=== PATIENT | male | born 1965 | race Caucasian/White ===

== ENCOUNTER 2022-11-19 08:18 | Day surgery (SDC) | payer BC ==
[2022-11-13 16:48] LABS: CLARITY,URINE CLEAR (Clear); COLOR,URINE YELLOW (Yellow); GLUCOSE, URINE NEGATIVE (Neg); KETONES,URINE NEGATIVE (Neg); LEUKOCYTE ESTERASE ,URINE NEGATIVE (Neg); NITRITES, URINE NEGATIVE (Neg); OCCULT BLOOD,URINE NEGATIVE (Neg); PROTEIN,URINE NEGATIVE (Neg); UROBILINOGEN,URINE 0.2 E.U/dL (0.2-1.0)
[2022-11-13 16:49] LABS: BASOPHILS # (AUTO) 0.1 X10'3 (0-0.2); EOSINOPHILS # (AUTO) 0.3 X10'3 (0-0.9); LYMPHOCYTES # (AUTO) 1.4 X10'3 (1.1-4.8); LYMPHOCYTES % (AUTO) 17.4 % (21-51); MEAN CORPUSCULAR HEMOGLOBIN 27.4 PG (27.0-31.0); MEAN CORPUSCULAR HGB CONC 33.3 g/dL (33.0-36.5); MEAN CORPUSCULAR VOLUME 82.2 FL (78-98); MONOCYTES # (AUTO) 0.4 X10'3 (0-0.9); MONOCYTES % (AUTO) 5.5 % (2-12); NEUTROPHILS # (AUTO) 5.8 X10'3 (1.8-7.7); NEUTROPHILS % (AUTO) 72.1 % (42-75); PRE OP HEMATOCRIT 44.2 % (42.0-52.0); PRE OP HEMOGLOBIN 14.7 g/dL (14.0-17.9); PRE OP PLATELET COUNT 240 X10'3 (140-440); RED BLOOD COUNT 5.38 X10'6 (4.70-6.10); RED CELL DISTRIBUTION WIDTH 14.6 % (11.5-14.5)
[2022-11-13 16:53] LABS: UA COLLECTION TYPE CLN CATCH MIDSTREAM
[2022-11-13 17:00] LABS: ALBUMIN 3.7 G/DL (3.4-5.0); ALKALINE PHOSPHATASE 113 IU/L (46-116); BLOOD UREA NITROGEN 14 MG/DL (7-18); BUN/CREATININE RATIO 16.7 (10.0-20.0); CHLORIDE 106 MMOL/L (99-107); CREATININE 0.84 MG/DL (0.60-1.10); PRE OP ALT 19 U/L (30-65); PRE OP ANION GAP 6 (8-16); PRE OP AST 16 U/L (10-37); PRE OP BILIRUB, TOTAL 0.5 MG/DL (0.0-1.0); PRE OP GLUCOSE 121 MG/DL (70-104); PRE OP SODIUM 136 MMOL/L (135-145); TOTAL CARBON DIOXIDE 23.9 MMOL/L (24-32); TOTAL PROTEIN 7.3 G/DL (6.4-8.2); eGFR > 90 ML/MIN
[~2022-11-19] VITALS: Ht 180.3 cm; Wt 135.5 kg
[2022-11-19] VITALS (16 sets, daily range): BP systolic 103–178; BP diastolic 65–94
[~2022-11-19 08:18] MED LIST: LOSA100T58 PO; ceFAZolin inj. 3,000 MG in normal saline 100ml IV soln 100 ML IV ONE; famotidine 20mg tablet PO ONE; ringers solution, lacted 1,000 ML IV SCH
[2022-11-19] MEDS ORDERED: BUPIVAcaine/PF 2.5 mg/ml (0.25%) 30ml vial ONE ×2 (10:26→10:39)
[2022-11-19] MEDS ORDERED: BUPIVACAINE liposomal/PF 13.3 MG/ML vial IM ONE (10:39)
[2022-11-19] MEDS ORDERED: fentaNYL/PF 50MCG/1 ML 2ML syringe ONE ×2 (10:46→12:24)
[2022-11-19] MEDS ORDERED: midazolam 1 mg/ML 2ml injection ONE (10:47)
[2022-11-19] MEDS ORDERED: morphine 2 MG/ML inj. syringe IV PRN (12:30)
[2022-11-19] MEDS ORDERED: morphine 4 MG/ML inj SYRINge IV PRN (12:30)
[2022-11-19] MEDS ORDERED: meperidine/PF 25mg/ml syringe IV PRN ×2 (12:30)
[2022-11-19] MEDS ORDERED: ringers solution, lacted 1,000 ML IV SCH (12:30)
[2022-11-19] MEDS ORDERED: ondansetron/PF 4mg/2ml inj IV PRN (12:30)
[2022-11-19] MEDS ORDERED: proCHLORperazine 10 MG/2 ml inj IV PRN (12:30)
[2022-11-19] MEDS ORDERED: ondansetron/PF 4mg/2ml inj ONE (13:54)
[2022-11-19] MEDS ORDERED: albuterol 60 PUFF/8GM Inhaler (90mcg/1 puff) IH ONE (13:54)
[2022-11-19] MEDS ORDERED: neostigmine methylsulfate 1 MG/ML 10ml vial ONE (13:54)
[2022-11-19] MEDS ORDERED: rocuronium 10mg/ml inj IV ONE (13:54)
[2022-11-19] MEDS ORDERED: LIDOcaine 2% (20mg/ml) 5ml vial ONE (13:54)
[2022-11-19] MEDS ORDERED: glycopyrrolate 0.2mg/ml inj ONE (13:54)
[2022-11-19] MEDS ORDERED: dexamethasone sod phosphate 4mg/ml inj. ONE (13:54)
[2022-11-19] MEDS ORDERED: propofol inj 20 ML IV ONE (13:54)
[2022-11-19] MEDS ORDERED: sugammadex 200mg/2ml injection IV ONE (13:57)
--- NOTE | 2022-11-19 13:59 | NUR ---
Received from OR via [facility] TO [facility], accompanied by Anesthesiologist DR JOYCE and report given by Anesthesiolgist. PT PRESENTS WITH PIV 20G LEFT AC, 3 ABD LAP SITES CDI WITH ISLAND DRESSING CDI, SPO2 99% 6L MASK/ LR RUNNING AT 100MLS/HR, VSS. PT REPORTS ABD PAIN 01/29, PT MEDICATED. Addendum: 11/19/22 at 1440 by Kamala Dimas RN, RN Amended: Links added.
[2022-11-19] MEDS: meperidine/PF 25mg/ml syringe IV PRN ×2 (14:12→15:06)
[2022-11-19] MEDS ORDERED: HYDROcodone/acetaminophen 10/325mg tab PO ONE (14:45)
--- NOTE | 2022-11-19 16:09 | NUR ---
I HAVE REVIEWED D/C INSTRUCTIONS WITH PATIENT and they have verbalized understanding patient d/c home with all belongings and family gave transport home. Addendum: 11/19/22 at 1622 by Kamala Dimsa RN, RN Amended: Links added.
== END 2022-11-19 16:09 | disposition home or self-care (01) ==
LOC: PAS 08:18
PROVIDERS: ATTEND Surgery
DX: K43.2 Incisional hernia without obstruction or gangrene (principal); I10 Essential (primary) hypertension; K21.9 Gastro-esophageal reflux disease without esophagitis; F41.9 Anxiety disorder, unspecified; J45.909 Unspecified asthma, uncomplicated; M19.90 Unspecified osteoarthritis, unspecified site; E66.9 Obesity, unspecified; Z68.41 Body mass index [BMI] 40.0-44.9, adult; Z72.89 Other problems related to lifestyle; Z91.09 Other allergy status, other than to drugs and biological substances; Z88.8 Allergy status to other drugs, medicaments and biological substances; Z98.890 Other specified postprocedural states; Z79.899 Other long term (current) drug therapy
CPT/HCPCS: 36415; 49615; 80053; 81003; 82948; 85025; 93005; C1713; C1781; C9290; J0690; J1100; J2175; J2250; J2270; J2405; J2704; J2710; J3010; J3490; J7030; J7120; Z7506; Z7508; Z7512; A4615; A4618; A7000